=== PATIENT | female | born 1980 | race Caucasian/White ===

== ENCOUNTER 2018-09-21 19:12 | Inpatient (IN) | payer SELFPAY ==
[2018-09-21 20:17] VITALS: BMI 25.7
[2018-09-21] MEDS ORDERED: MELATONIN 5 MG TABLETS PO PRN (22:00)
--- NOTE | 2018-09-21 22:40 | HP ---
CIWA Score Nausea/Vomitin-Mild Nausea/No Vomiting Muscle Tremors: 4-Moderate,w/Arms Extend Anxiety: 4-Mod. Anxious/Guarded Agitation: 4-Moderately Restless Paroxysmal Sweats: 1-Minimal Palms Moist Orientation: 1-Uncertain about Date Tacttile Disturbances: 0-None Auditory Disturbances: 0-None Visual Disturbances: 0-None Headache: 2-Mild CIWA-Ar Total Score: 17 - Admission Criteria [facility] Guidelines: Admission for Medically Managed Detox: Requires at least one of the followin. CIWA greater than 12 2. Seizures within the past 24 hours 3. Delirium tremens within the past 24 hours 4. Hallucinations within the past 24 hours 5. Acute intervention needed for co occurring medical disorder 6. Acute intervention needed for co occurring psychiatric disorder 7. Severe withdrawal that cannot be handled at a lower level of care (continued vomiting, continued diarrhea, abnormal vital signs) requiring intravenous medication and/or fluids 8. Admission ROS S - [facility] Chief Complaint: Alcohol withdrawal symptoms Allergies/Adverse Reactions: Allergies Allergy/AdvReac Type Severity Reaction Status Date / Time No Known Allergies Allergy Verified 09/21/18 21:35 History of Present Illness: 38 years old female with about 10 days of continuous drinking is seeking admission to detox. Patient reports that prior to now, she was drinking socially until she broke up with her boyfriend of 13 years. She denies past medical history and suicidal ideation at this time. Exam Limitations: No Limitations - Ebola screening Have you traveled outside of the country in the last 21 days: No Have you had contact with anyone from an Ebola affected area: No Have you been sick,other than usual withdrawal symptoms: No - Review of Systems Constitutional: Chills, Loss of Appetite, Malaise, Changes in sleep, Weakness EENT: reports: No Symptoms Reported Respiratory: reports: No Symptoms reported Cardiac: reports: No Symptoms Reported GI: reports: Nausea, Poor Appetite, Poor Fluid Intake, Abdominal cramping : reports: No Symptoms Reported Musculoskeletal: reports: No Symptoms Reported Integumentary: reports: Flushing Endocrine: reports: No Symptoms Reported Hematology: reports: No Symptoms Reported Psychiatric: reports: Agitated, Anxious, Depressed Other Systems: Reviewed and Negative Patient History - Patient Medical History Hx Anemia: No Hx Asthma: No Hx Chronic Obstructive Pulmonary Disease (COPD): No Hx Cancer: No Hx Cardiac Disorders: No Hx Congestive Heart Failure: No Hx Hypertension: No Hx Hypercholesterolemia: No Hx Pacemaker: No HX Cerebrovascular Accident: No Hx Seizures: No Hx Dementia: No Hx Diabetes: No Hx Gastrointestinal Disorders: No Hx Liver Disease: No Hx Genitourinary Disorders: No Hx Sexually Transmitted Disorders: No Hx Renal Disease (ESRD): No Hx Thyroid Disease: No Hx Human Immunodeficiency Virus (HIV): No - Patient Surgical History Past Surgical History: No - PPD History Previous Implant?: Yes Documented Results: Negative w/o proof Implanted On Prior R Admission?: No PPD to be Administered?: Yes - Reproductive History Patient is a Female of Child Bearing Age (11 -55 yrs old): Yes Last Menstrual Period: 09/01/18 Patient : No - Smoking Cessation Smoking history: Never smoked Have you smoked in the past 12 months: No Hx Chewing Tobacco Use: No Initiated information on smoking cessation: No - Substance & Tx. History Hx Alcohol Use: Yes Hx Substance Use: No Substance Use Type: Alcohol Hx Substance Use Treatment: No - Substances Abused Alcohol Route: Oral Frequency: Daily Amount used: 3 BOTTLES VODKA Age of first use: 38 Date of Last Use: 09/21/18 Family Disease History - Family Disease History Family History: Denies Admission Physical Exam [facility] - Vital Signs Vital Signs: Vital Signs - 24 hr 09/21/18 20:15 Temperature 97.7 F Pulse Rate 105 H Respiratory 18 Rate Blood Pressure 148/95 - Physical General Appearance: Yes: Moderate Distress, Tremorous, Irritable, Sweating, Anxious HEENTM: Yes: EOMI, Normal ENT Inspection, Normocephalic, Normal Voice, STEVE Respiratory: Yes: Lungs Clear, Normal Breath Sounds, No Respiratory Distress Neck: Yes: Supple Breast: Yes: Breast Exam Deferred Cardiology: Yes: Tachycardia Abdominal: Yes: Normal Bowel Sounds, Soft Genitourinary: Yes: Within Normal Limits Back: Yes: Normal Inspection Musculoskeletal: Yes: Within Normal Limits Extremities: Yes: Tremors Neurological: Yes: bander II-XII NML intact, Alert, Normal Mood/Affect Integumentary: Yes: Warm Lymphatic: Yes: Within Normal Limits - Diagnostic (1) Alcohol dependence with uncomplicated withdrawal Current Visit: Yes Status: Chronic Cleared for Admission [facility] - Detox or Rehab [facility] Level of Care: Medically Managed Detox Regimen/Protocol: Librium [facility] Breath Alcohol Content Breath Alcohol Content: 0.320 Urine Pregancy Test - Result Urine Test Results: Negative- NO Line Present Urine Drug Screen - Results Drug Screen Negative: Yes
[2018-09-21] MEDS ORDERED: MENTHOL/PHENOL 1 EACH UD MM PRN (22:54)
[2018-09-21] MEDS ORDERED: MAG HYDROX/AL HYDROX/SIMETH 30 ML UNIT-DOSE CUP PO PRN (22:54)
[2018-09-21] MEDS ORDERED: guaiFENesin/D-METHORPHAN HB 10 ML UNIT-DOSE CUPS PO PRN (22:54)
[2018-09-21] MEDS ORDERED: MAGNESIUM CITRATE 300 ML BOTTLE PO PRN (22:54)
[2018-09-21] MEDS ORDERED: ACETAMINOPHEN 325 MG TABLET (FP) PO PRN (22:54)
[2018-09-21] MEDS ORDERED: IBUPROFEN 400 MG TABLET (FP) PO PRN (22:54)
[2018-09-21] MEDS ORDERED: P-EPHED 60MG/TRIPROLIDI 2.5MG TABLET PO PRN (22:54)
[2018-09-21] MEDS ORDERED: chlordiazePOXIDE HCL 25 MG CAPSULE PO PRN (22:54)
[2018-09-21] MEDS ORDERED: MAGNESIUM HYDROX 2400MG/30ML ORAL SUSPENSION 30 ML CUP PO PRN (22:54)
[2018-09-21] MEDS ORDERED: LOPERAMIDE HCL 2 MG CAPSULE PO PRN (22:54)
[2018-09-22] MEDS: chlordiazePOXIDE HCL 25 MG CAPSULE PO SCH ×5 (00:34→22:19)
[2018-09-22] MEDS: PRENATAL VITAMINS W/ FOLIC ACID TABLET (FP) PO SCH (10:06)
[2018-09-22 10:52] LABS: HEMATOCRIT 38.3 % (32.4-45.2); HEMOGLOBIN 13.2 GM/dL (10.7-15.3); MCHC 34.4 g/dl (32.0-36.0); MEAN CELL VOLUME 93.2 fl (80-96); MEAN PLT VOLUME 7.9 fl (7.5-11.1); PLATELET COUNT 247 K/MM3 (134-434); RBC 4.11 M/mm3 (3.60-5.2); RDW 16.1 % (11.6-15.6); WHITE BLOOD COUNT 4.8 K/mm3 (4.0-10.0)
[2018-09-22 11:14] LABS: ALBUMIN 3.5 g/dl (3.4-5.0); ALK PHOS 56 U/L (45-117); ANION GAP 9 MMOL/L (8-16); BILIRUBIN,TOTAL 0.8 mg/dL (0.2-1); BLOOD UREA NITROGEN 14 mg/dL (7-18); CALCIUM 9.8 mg/dL (8.5-10.1); CHLORIDE 98 mmol/L (98-107); CO2 30 mmol/L (21-32); CREATININE 0.7 mg/dL (0.55-1.3); GLUCOSE,RANDOM 90 mg/dL (74-106); POTASSIUM 4.2 mmol/L (3.5-5.1); SGOT/AST 59 U/L (15-37); SGPT/ALT 41 U/L (13-61); SODIUM 136 mmol/L (136-145); TOT PROT 6.9 g/dl (6.4-8.2)
--- NOTE | 2018-09-22 12:01 | PN ---
S CIWA - CIWA Score Nausea/Vomitin-Mild Nausea/No Vomiting Muscle Tremors: 4-Moderate,w/Arms Extend Anxiety: 3 Agitation: 3 Paroxysmal Sweats: 1-Minimal Palms Moist Orientation: 0-Oriented Tacttile Disturbances: 0-None Auditory Disturbances: 0-None Visual Disturbances: 0-None Headache: 2-Mild CIWA-Ar Total Score: 14 BHS Progress Note (SOAP) Subjective: c/o 5/10 mid upper abdomen pain radiated to epigastria area no shortness of breath abdomen soft had regular BM early today none tender Maalox x 1 feeling better discontinue motrin begin zantac 150 mg bid tremor sweating trouble sleep throughout the night Objective: 09/22/18 12:12 Vital Signs Temperature 97.5 F L 09/22/18 09:09 Pulse Rate 111 H 09/22/18 09:09 Respiratory Rate 18 09/22/18 09:09 Blood Pressure 126/73 09/22/18 09:09 O2 Sat by Pulse Oximetry (%) Laboratory Last Values WBC 4.8 K/mm3 (4.0-10.0) 09/22/18 07:00 RBC 4.11 M/mm3 (3.60-5.2) 09/22/18 07:00 Hgb 13.2 GM/dL (10.7-15.3) 09/22/18 07:00 Hct 38.3 % (32.4-45.2) 09/22/18 07:00 MCV 93.2 fl (80-96) 09/22/18 07:00 MCH 32.0 pg (25.7-33.7) 09/22/18 07:00 MCHC 34.4 g/dl (32.0-36.0) 09/22/18 07:00 RDW 16.1 % (11.6-15.6) H 09/22/18 07:00 Plt Count 247 K/MM3 (134-434) 09/22/18 07:00 MPV 7.9 fl (7.5-11.1) 09/22/18 07:00 Sodium 136 mmol/L (136-145) 09/22/18 07:00 Potassium 4.2 mmol/L (3.5-5.1) 09/22/18 07:00 Chloride 98 mmol/L (98-107) 09/22/18 07:00 Carbon Dioxide 30 mmol/L (21-32) 09/22/18 07:00 Anion Gap 9 MMOL/L (8-16) 09/22/18 07:00 BUN 14 mg/dL (7-18) 09/22/18 07:00 Creatinine 0.7 mg/dL (0.55-1.3) 09/22/18 07:00 Creat Clearance w eGFR > 60 (>60) 09/22/18 07:00 Random Glucose 90 mg/dL (74-106) 09/22/18 07:00 Calcium 9.8 mg/dL (8.5-10.1) 09/22/18 07:00 Total Bilirubin 0.8 mg/dL (0.2-1) 09/22/18 07:00 AST 59 U/L (15-37) H 09/22/18 07:00 ALT 41 U/L (13-61) 09/22/18 07:00 Alkaline Phosphatase 56 U/L (45-117) 09/22/18 07:00 Total Protein 6.9 g/dl (6.4-8.2) 09/22/18 07:00 Albumin 3.5 g/dl (3.4-5.0) 09/22/18 07:00 labn oted Assessment: 09/22/18 12:13 withdrawal sx 09/22/18 12:13 gerd Plan: continue detox zantac
[2018-09-22] MEDS ORDERED: BACLOFEN 10 MG TABLET (FP) PO ONE (12:03)
[2018-09-22] MEDS: RANITIDINE HCL 150 MG TABLET (FP) PO SCH ×2 (12:31→22:19)
[2018-09-22] MEDS ORDERED: THIAMINE HCL 100 MG TABLET (FP) PO SCH (22:00)
[2018-09-23] MEDS: chlordiazePOXIDE HCL 25 MG CAPSULE PO SCH ×3 (05:37→17:08)
[2018-09-23] MEDS: PRENATAL VITAMINS W/ FOLIC ACID TABLET (FP) PO SCH (10:06)
[2018-09-23] MEDS: RANITIDINE HCL 150 MG TABLET (FP) PO SCH (10:06)
--- NOTE | 2018-09-23 14:29 | PN ---
S CIWA - CIWA Score Nausea/Vomitin-No Nausea/No Vomiting Muscle Tremors: 1-None Visible, but Randall Anxiety: 2 Agitation: 1-Slight > Activity Paroxysmal Sweats: No Perspiration Orientation: 0-Oriented Tacttile Disturbances: 0-None Auditory Disturbances: 0-None Visual Disturbances: 0-None Headache: 0-None Present CIWA-Ar Total Score: 4 BHS Progress Note (SOAP) Subjective: pt states doing well since being here- says medications are holding her withdrawal Sx at bay. Vital Signs - 24 hr 09/22/18 09/22/18 09/23/18 18:09 22:00 03:30 Temperature 98.2 F 98.1 F Pulse Rate 98 H 96 H Respiratory 16 16 18 Rate Blood Pressure 141/81 127/79 09/23/18 09/23/18 06:07 09:20 Temperature 96.8 F L 98.3 F Pulse Rate 96 H 87 Respiratory 18 18 Rate Blood Pressure 117/78 129/78 Laboratory Tests 09/22/18 09/22/18 09/22/18 07:00 07:00 07:00 WBC 4.8 RBC 4.11 Hgb 13.2 Hct 38.3 MCV 93.2 MCH 32.0 MCHC 34.4 RDW 16.1 H Plt Count 247 MPV 7.9 Sodium 136 Potassium 4.2 Chloride 98 Carbon Dioxide 30 Anion Gap 9 BUN 14 Creatinine 0.7 Creat Clearance w eGFR > 60 Random Glucose 90 Calcium 9.8 Total Bilirubin 0.8 AST 59 H ALT 41 Alkaline Phosphatase 56 Total Protein 6.9 Albumin 3.5 RPR Titer Nonreactive a/p: continue alcohol detox protocol, pt states may go home later today or tomorrow as she has to go to work tomorrow morning.
[2018-09-23 14:30] VITALS: BP 141/87; PULSE 89; TEMP 97.1
--- NOTE | 2018-09-23 14:55 | EKG ---
Test Reason : Blood Pressure : / mmHG Vent. Rate : 087 BPM Atrial Rate : 087 BPM P-R Int : 140 ms QRS Dur : 078 ms QT Int : 360 ms P-R-T Axes : 038 058 031 degrees QTc Int : 433 ms NORMAL SINUS RHYTHM SEPTAL INFARCT , AGE UNDETERMINED ABNORMAL ECG NO PREVIOUS ECGS AVAILABLE Confirmed by ANGELIQUE MARTIN MD ([id number]) on 09/23/2018 2:54:53 PM Referred By: Confirmed By:ANGELIQUE MARTIN MD
[2018-09-23] MEDS ORDERED: chlordiazePOXIDE 5 MG CAPSULE PO SCH (23:00)
[2018-09-24] MEDS ORDERED: chlordiazePOXIDE HCL 10 MG CAPSULE PO SCH (23:00)
== END 2018-09-23 17:30 | disposition left against medical advice (07) | DRG 770 ==
LOC: YASAS 19:12 → Y3N 23:17
PROVIDERS: ADMIT Neuromusculoskeletal Medicine & OMM; ATTEND Neuromusculoskeletal Medicine & OMM
PROC: HZ2ZZZZ Detoxification Services for Substance Abuse Treatment (ICD-10-PCS; principal; 2018-09-21)
DX: F10.230 Alcohol dependence with withdrawal, uncomplicated (principal); R00.0 Tachycardia, unspecified; K21.9 Gastro-esophageal reflux disease without esophagitis
CPT/HCPCS: 36415; 80053; 85027; 86593; 93005; 93010; J0475